=== PATIENT | female | born 2000 | race African-American/Black ===

== ENCOUNTER 2021-03-11 23:09 | Emergency (ER) | payer MEDICAID ==
[~2021-03-11] VITALS: Ht 175.3 cm; Wt 82.0 kg
[2021-03-11 23:27] VITALS: BP 129/72
[2021-03-11] MEDS ORDERED: METHYLPREDNISOLONE SOD SUCC 125 MG/2 ML VIAL IM ONE (23:45)
[2021-03-12] MEDS ORDERED: CLIN300C12 PO (01:12)
[2021-03-12] MEDS ORDERED: DIPH25CA83 PO (01:12)
[2021-03-12] MEDS ORDERED: P50 PO (01:12)
[2021-03-12] MEDS ORDERED: CLINDAMYCIN HCL 150MG CAPSULE PO NR (01:15)
[2021-03-12] MEDS ORDERED: DIPHENHYDRAMINE 50MG/ML VIAL IM ONE (01:15)
== END 2021-03-12 02:06 | disposition home or self-care (01) ==
LOC: ER 23:09
DX: K13.0 Diseases of lips (principal); T78.3XXA Angioneurotic edema, initial encounter; X58.XXXA Exposure to other specified factors, initial encounter; J45.909 Unspecified asthma, uncomplicated
CPT/HCPCS: 96372; 99284; J1200; J2930

== ENCOUNTER 2021-10-16 06:33 | Emergency (ER) | payer MEDICAID ==
[~2021-10-16] VITALS: Ht 175.3 cm; Wt 73.0 kg
[~2021-10-16 06:33] MED LIST: CLIN-194 PO; DIPH25CA83 PO; P50 PO
[2021-10-16] MEDS ORDERED: IPRATROPIUM BROMIDE (0.02%) 0.5MG/2.5ML NEB HHN STA (06:48)
[2021-10-16] MEDS ORDERED: ALBUTEROL (0.083%) 2.5MG/3ML NEB HHN STA (06:48)
[2021-10-16] MEDS ORDERED: PREDNISONE 20MG TABLET PO STA (06:48)
[2021-10-16] MEDS ORDERED: BECL10.62 INH ×2 (08:32→09:05)
[2021-10-16] MEDS ORDERED: ALBU6.7H15 INH ×2 (08:32→09:05)
[2021-10-16] MEDS ORDERED: P50 MT ×2 (08:32→09:05)
[2021-10-16] MEDS ORDERED: PREDNISONE 20MG TABLET PO NR (08:45)
[2021-10-16 09:17] VITALS: BP 149/90
== END 2021-10-16 09:17 | disposition home or self-care (01) ==
LOC: ER 06:33
DX: J45.901 Unspecified asthma with (acute) exacerbation (principal); Z76.0 Encounter for issue of repeat prescription
CPT/HCPCS: 71045; 94644; 99285; J7512; Z7610

== ENCOUNTER 2024-01-07 18:46 | Inpatient (IN) | payer SELFPAY ==
[~2024-01-07] VITALS: Ht 175.3 cm; Wt 104.3 kg
[~2024-01-07 18:46] MED LIST changes: +ALBU6.7H15 INH; +BECL10.62 INH; +IBUP-2028 PO; +P50 MT; +T3 PO
[2024-01-07 19:36] VITALS: PULSE 128; RESP 22; O2SAT 99
[2024-01-07] MEDS: IPRATROPIUM/ALBUTEROL 0.5-3(2.5)MG/3ML NEB HHN STA (19:36)
[2024-01-07 19:58] VITALS: PULSE 114; RESP 20; O2SAT 99
[2024-01-07] MEDS: IPRATROPIUM/ALBUTEROL 0.5-3(2.5)MG/3ML NEB HHN SCH (20:14)
[2024-01-07 20:15] VITALS: PULSE 120; RESP 20; O2SAT 99
[2024-01-07 20:59] LABS: BASOPHILS % 0.1 % (0.0-2.0); EOSINOPHILS % 3.2 % (0.0-5.0); HEMATOCRIT. 42.1 % (36.0-48.0); HEMOGLOBIN. 13.9 g/dL (12.0-16.0); LYMPHOCYTES % 7.9 % (20.0-50.0); MEAN CORPUSCULAR HEMOGLOBIN 27.9 pg (28.0-32.0); MEAN CORPUSCULAR HGB CONC 33.1 g/dL (31.0-37.0); MEAN CORPUSCULAR VOLUME 84.2 fL (81.0-99.0); MEAN PLATELET VOLUME 8.6 fl (7.4-10.4); MONOCYTES % 4.3 % (2.0-8.0); NEUTROPHILS % 84.5 % (40.0-76.0); PLATELET 265 x1000/uL (130-400); RED CELL DISTRIBUTION WIDTH 14.8 % (11.6-14.6); WHITE BLOOD COUNT 10.8 x1000/uL (4.5-11.0)
[2024-01-07 21:04] LABS: CHLORIDE 107 mEq/L (98-107); POTASSIUM 4.5 mEq/L (3.5-5.1); SODIUM 137 mEq/L (136-145)
[2024-01-07 21:05] LABS: CALCIUM 9.7 mg/dL (8.7-10.4); CARBON DIOXIDE 26 mEq/L (21-32)
[2024-01-07 21:10] LABS: CREATININE 0.7 mg/dL (0.6-1.0); GLUCOSE 92 mg/dL (70-105); UREA NITROGEN BLOOD 7 mg/dL (9-23)
[2024-01-07 21:16] LABS: TROPONIN I HIGH SENSITIVITY < 4 ng/L (3.0-34)
[2024-01-07] MEDS: DEXAMETHASONE 4MG TABLET PO ONE (23:08)
[2024-01-08] VITALS (11 sets, daily range): BP systolic 115–153; BP diastolic 56–107; PULSE 95–125; RESP 18–20; TEMP 36.22512–36.83628; O2SAT 94–100
[2024-01-08] MEDS: IPRATROPIUM/ALBUTEROL 0.5-3(2.5)MG/3ML NEB HHN SCH (04:42)
[2024-01-08] MEDS: BUDESONIDE 0.5MG/2ML NEB HHN SCH (04:43)
[2024-01-08] MEDS: METHYLPREDNISOLONE SOD SUCC 40MG/ML (ACT-O-VIAL) IV SCH ×2 (04:44→22:11)
[2024-01-08] MEDS: MONTELUKAST SODIUM 10MG TABLET PO SCH (09:33)
[2024-01-08] MEDS ORDERED: ONDANSETRON HCL 4MG/2ML INJ IV PRN (17:00)
[2024-01-08] MEDS ORDERED: ACETAMINOPHEN 325MG TABLET PO PRN ×2 (17:00)
[2024-01-08] MEDS ORDERED: DOCUSATE SODIUM 100MG CAPSULE PO PRN (17:00)
[2024-01-08] MEDS ORDERED: IPRATROPIUM/ALBUTEROL 0.5-3(2.5)MG/3ML NEB HHN PRN (17:00)
[2024-01-08] MEDS: DILTIAZEM HCL 30MG TABLET PO SCH (17:55)
[2024-01-08] MEDS: CLONIDINE 0.1MG TABLET PO PRN (17:55)
[2024-01-08 18:00] LABS: BG BASE EXCESS -2.2 mmol/L (-2.0-3.0); BG CARBOXYHEMOGLOBIN 0.5 % (0.5-1.5); BG FRACTION INSPIRED OXYGEN 21; BG HCO3 ACT 21.2 mmol/L (21.0-28.0); BG METHEMOGLOBIN 0.1 % (0.5-1.5); BG OXYHEMOGLOBIN 93.4 % (94.0-98.0); BG PCO2 32.9 mmHg (32.0-45.0); BG PH 7.426 (7.350-7.450); BG PO2 68.7 mmHg (83.0-108.0); BG SAMPLE SITE RIGHT RADIAL; BG TOTAL HEMOGLOBIN 16.1 g/dL (12.0-16.0); BG VENT MODE ROOM AIR
[2024-01-08 23:53] LABS: CLARITY URINE CLOUDY (CLEAR); COLOR URINE YELLOW (YELLOW); GLUCOSE URINE NEGATIVE (NEGATIVE); KETONES URINE TRACE (NEGATIVE); LEUKOCYTE ESTERASE URINE NEGATIVE (NEGATIVE); NITRITE URINE NEGATIVE (NEGATIVE); OCCULT BLOOD URINE NEGATIVE (NEGATIVE); PH URINE 6.5 (4.5-8.0); PROTEIN URINE 1+ (NEGATIVE); SPECIFIC GRAVITY URINE 1.036 (1.005-1.030)
[2024-01-09] VITALS (7 sets, daily range): BP systolic 98–144; BP diastolic 53–109; PULSE 89–102; RESP 16–18; TEMP 36.114–37.00296; O2SAT 96–100
[2024-01-09 01:18] LABS: WBC URINE 0-2 /hpf (0-2)
[2024-01-09 01:19] LABS: BACTERIA URINE TRACE; RBC URINE 0-2 /hpf (0-2); SQUAMOUS EPITHELIAL CELL URINE FEW /lpf (RARE/1+)
[2024-01-09 01:36] LABS: CREATINE KINASE MB FRACTION 3.4 ng/mL (0.5-3.6)
[2024-01-09 01:38] LABS: CREATINE KINASE 185 IU/L (34-145)
[2024-01-09 01:40] LABS: T4 FREE 1.18 ng/dL (0.89-1.76)
[2024-01-09 01:41] LABS: THYROID STIMULATING HORMONE 0.47 uIU/mL (0.55-4.78)
[2024-01-09 01:54] LABS: TROPONIN I HIGH SENSITIVITY < 4 ng/L (3.0-34)
[2024-01-09 06:19] LABS: CHLORIDE 105 mEq/L (98-107); HEMATOCRIT. 39.5 % (36.0-48.0); HEMOGLOBIN. 12.7 g/dL (12.0-16.0); MEAN CORPUSCULAR HEMOGLOBIN 26.8 pg (28.0-32.0); MEAN CORPUSCULAR HGB CONC 32.1 g/dL (31.0-37.0); MEAN CORPUSCULAR VOLUME 83.6 fL (81.0-99.0); MEAN PLATELET VOLUME 9.2 fl (7.4-10.4); PLATELET 271 x1000/uL (130-400); POTASSIUM 4.4 mEq/L (3.5-5.1); RED BLOOD CELL COUNT 4.72 mill/uL (4.2-5.4); SODIUM 136 mEq/L (136-145)
[2024-01-09 06:20] LABS: CALCIUM 9.4 mg/dL (8.7-10.4); CARBON DIOXIDE 22 mEq/L (21-32)
[2024-01-09 06:23] LABS: DIFFERENTIAL COMMENT 1
[2024-01-09 06:25] LABS: CREATININE 0.7 mg/dL (0.6-1.0); GLUCOSE 154 mg/dL (70-105); TRIGLYCERIDE 38 mg/dL (0-150)
[2024-01-09 06:26] LABS: UREA NITROGEN BLOOD 11 mg/dL (9-23)
[2024-01-09 06:36] LABS: D-DIMER 0.37 mg/L FEU (<0.50); INR 0.9; PROTHROMBIN TIME 10.6 sec (9.6-11.0)
[2024-01-09 08:14] LABS: LDL CHOLESTEROL 82 mg/dL (5-100)
[2024-01-09 08:15] LABS: ALANINE AMINOTRANSFERASE 25 IU/L (10-49); ALBUMIN 4.1 g/dL (3.2-4.8); ASPARTATE AMINOTRANSFERASE 27 IU/L (<34); BILIRUBIN TOTAL 0.3 mg/dL (0.1-1.0); CHOLESTEROL 127 mg/dL (<200); HDL CHOLESTEROL 45 mg/dL (>65); PHOSPHORUS 2.8 mg/dL (2.5-4.9); PROTEIN TOTAL 7.6 g/dL (6.0-8.3)
[2024-01-09 08:34] LABS: BILIRUBIN DIRECT < 0.1 mg/dL (<=3.0)
[2024-01-09] MEDS: INFLUENZA VACCINE 05/PF 0.5 ML SYRINGE IM ONE (14:35)
[2024-01-09] MEDS ORDERED: PRED5TAB48 MT (17:30)
[2024-01-09] MEDS ORDERED: DILT30TA37 MT (17:30)
[2024-01-09] MEDS ORDERED: ALBU90AE INH (17:30)
[2024-01-09 20:14] LABS: PLATELET ESTIMATE NORMAL
== END 2024-01-09 18:55 | disposition home or self-care (01) | DRG 141 ==
LOC: ER 18:46 → 5WST 22:20 → 6WST 01-08 12:41
PROVIDERS: ADMIT Internal Medicine; ATTEND Internal Medicine
DX: J45.901 Unspecified asthma with (acute) exacerbation (principal); E66.9 Obesity, unspecified; R06.03 Acute respiratory distress; Z20.822 Contact with and (suspected) exposure to COVID-19; I10 Essential (primary) hypertension; R09.02 Hypoxemia; R00.0 Tachycardia, unspecified; Z68.34 Body mass index [BMI] 34.0-34.9, adult
CPT/HCPCS: 36415; 36600; 71045; 80048; 80061; 80076; 81003; 82375; 82550; 82553; 82805; 83735; 84100; 84439; 84443; 84480; 84484; 85025; 85379; 87426; 90686; 93005; 94640; 99285; J2920; J7626; J8540